=== PATIENT | female | born 1965 | race Caucasian/White ===

== ENCOUNTER → 2016-09-24 | Outpatient (CLI) | payer OTHER ==
[~2016-09-24] MED LIST: ABILIFY20 MG PO; ALPRAZOLAM; AMOXICILLIN500 MG PO; AUGMENTIN 875 M1 TAB PO; AUGMENTIN 875875 MG PO; BACTRIM DS 8001 TA1 PO; BENADRYL ALLERG25 M5 PO; BENZTROPINE MESY2 MG PO; BUSPAR5 MG PO; CALCIUM 500 + D1 TA1 PO; CHERATUSSIN AC120 ML PO; CIPRO500 MG PO; CIPRODEX 0.3%-7.5 ML OT; CIPROFLOXACIN500 MG PO; COGENTIN2 MG PO; DAYPRO600 M1 PO; FLAGYL500 MG PO; FLEXERIL10 MG PO; FLOXIN 5 ML5 M1 OT; GENTAMICIN3 MG/ML OT; HYDROCODONE BIT1 T11 PO; IBUPROFEN PO; LEVOFLOXACIN500 MG PO; MACROBID100 M1 PO; MOBIC15 MG PO; MOTRIN800 MG PO; NAPROSYN500 MG PO; NO DAILY MEDS; OMNICEF300 MG PO; PEPCID20 MG PO; PERCOCET 325 MG1 TA2 PO; PRAZOSIN HCL2 MG PO; PREDNISONE10 MG PO; PRILOSEC40 MG PO; PROTONIX40 M1 IV; REMERON30 MG PO; RISPERDAL CONST50 MG IJ; RISPERDAL0.25 MG PO; RISPERDAL4 M1 PO; RISPERIDONE4 MG PO; ROBITUSSIN AC 110 ML PO; TRAZADONE HYDR100 MG PO; TRIMOX500 MG PO; VALIUM10 MG PO; VICODIN 5-3001 EACH PO; VISTARIL50 MG PO; XANAX2 M1 PO; ZOFRAN ODT4 MG SL; ZYRTEC10 M1 PO; ZYRTEC10 M3 PO
== END | disposition home or self-care (01) ==
LOC: MAMMO 09-10 12:00
DX: Z12.31 Encounter for screening mammogram for malignant neoplasm of breast (principal)

== ENCOUNTER 2017-04-17 18:11 | Emergency (ER) | payer OTHER ==
[~2017-04-17] VITALS: Ht 170.1 cm; Wt 74.8 kg
[2017-04-17 18:32] VITALS: BP 145/95
== END 2017-04-17 22:03 | disposition home or self-care (01) ==
LOC: ED 18:11
DX: S90.31XA Contusion of right foot, initial encounter (principal); Z90.49 Acquired absence of other specified parts of digestive tract; W22.03XA Walked into furniture, initial encounter; Y93.89 Activity, other specified; Y92.9 Unspecified place or not applicable; Y99.9 Unspecified external cause status

== ENCOUNTER 2017-07-28 14:21 | Emergency (ER) | payer OTHER ==
[~2017-07-28] VITALS: Wt 63.5 kg
[2017-07-28 14:26] VITALS: BP 162/84
== END 2017-07-28 15:02 | disposition home or self-care (01) ==
LOC: ED 14:21
DX: T14.91XA Suicide attempt, initial encounter (principal); F10.129 Alcohol abuse with intoxication, unspecified; F41.9 Anxiety disorder, unspecified; F20.0 Paranoid schizophrenia; Z91.5 Personal history of self-harm

== ENCOUNTER 2017-11-15 01:43 | Emergency (ER) | payer OTHER ==
[~2017-11-15] VITALS: Wt 59.0 kg
[2017-11-15 01:47] VITALS: BP 143/87
[2017-11-15 02:12] LABS: BILIRUBIN NEGATIVE (NEGATIVE); BLOOD NEGATIVE (NEGATIVE); CLARITY SL CLOUDY (CLEAR); COLOR YELLOW (YELLOW); GLUCOSE NEGATIVE (NEGATIVE); KETONE NEGATIVE (NEGATIVE); LEUKO ESTERASE NEGATIVE (NEGATIVE); NITRITE NEGATIVE (NEGATIVE); SPECIFIC GRAVITY <= 1.005 (1.005-1.030)
[2017-11-15 02:36] LABS: BASO % 0.3 % (0.0-1.0); EOS # 0.2 10*3/uL (0.0-0.4); EOS % 3.6 % (1.0-4.0); HEMATOCRIT 42.5 % (37.0-47.0); HEMOGLOBIN 14.5 g/dl (12.0-16.0); LYMPH # 1.8 10*3/uL (1.3-4.4); LYMPH % 28.1 % (27.0-41.0); MEAN CELL VOLUME 95.3 fl (81.0-99.0); MEAN CORPUSCULAR HGB 32.5 pg (27.0-31.0); MEAN CORPUSCULAR HGB CONC 34.1 g/dl (33.0-37.0); MEAN PLATELET VOLUME 10.9 fl (9.6-12.3); MONO # 0.5 10*3/uL (0.1-1.0); MONO % 8.4 % (3.0-9.0); NEUT # 3.8 10*3/uL (2.3-7.9); NEUT % 59.3 % (47.0-73.0); PLATELET COUNT AUTOMATED 121 10*3/uL (130-400); RED BLOOD COUNT 4.46 10*6/uL (4.10-5.10); RED CELL DISTRI WIDTH 11.5 % (0-14.5); WHITE BLOOD COUNT 6.4 10*3/uL (4.8-10.8)
[2017-11-15 02:53] LABS: ALBUMIN 3.4 gm/dl (3.1-4.5); ALKALINE PHOSPHATASE 66 U/L (45-117); BUN 17 mg/dl (7-24); CHLORIDE 111 mmol/L (98-107); CREATININE 0.94 mg/dL (0.55-1.02); POTASSIUM 3.8 mmol/L (3.5-5.1); SGOT/AST 50 IU/L (3-35); SGPT/ALT 71 U/L (12-78); SODIUM 143 mmol/L (136-145); TOTAL PROTEIN 7.1 gm/dL (6.4-8.2)
[2017-11-15 02:56] LABS: ETHYL ALCOHOL < 3.0 mg/dl (<3)
[2017-11-15] MEDS ORDERED: ATARAX,VISTARIL50 MG PO (03:30)
[2017-11-15] MEDS ORDERED: ZITHROMAX250 MG PO (03:30)
== END 2017-11-15 03:24 | disposition home or self-care (01) ==
LOC: ED 01:43
PROVIDERS: Emergency Medicine Emergency Medical Services; Nurse Practitioner Family
DX: J20.9 Acute bronchitis, unspecified (principal); Z98.890 Other specified postprocedural states; Z90.49 Acquired absence of other specified parts of digestive tract

== ENCOUNTER 2018-10-06 19:44 | Emergency (ER) | payer OTHER ==
[~2018-10-06] VITALS: Ht 170.1 cm; Wt 65.8 kg
[~2018-10-06 19:44] MED LIST changes: +ATARAX,VISTARIL50 MG PO; +ZITHROMAX250 MG PO
[2018-10-06 19:45] VITALS: BP 156/89
[2018-10-06] MEDS ORDERED: AMINOPHYLLIN200 MG PO (20:02)
== END 2018-10-06 20:10 | disposition home or self-care (01) ==
LOC: ED 19:44
DX: H66.92 Otitis media, unspecified, left ear (principal); L29.9 Pruritus, unspecified

== ENCOUNTER 2018-10-14 17:40 | Emergency (ER) | payer OTHER ==
[~2018-10-14] VITALS: Ht 170.1 cm; Wt 65.8 kg
[~2018-10-14 17:40] MED LIST changes: +AMINOPHYLLIN200 MG PO
[2018-10-14 17:43] VITALS: BP 153/95
[2018-10-14] MEDS ORDERED: ALA-CORT28.4 GM T (18:06)
== END 2018-10-14 18:13 | disposition home or self-care (01) ==
LOC: ED 17:40
DX: R21 Rash and other nonspecific skin eruption (principal); T45.0X5A Adverse effect of antiallergic and antiemetic drugs, initial encounter; H92.02 Otalgia, left ear; Z90.49 Acquired absence of other specified parts of digestive tract; Z98.890 Other specified postprocedural states; Z79.899 Other long term (current) drug therapy; Y92.89 Other specified places as the place of occurrence of the external cause

== ENCOUNTER 2019-04-22 17:58 | Emergency (ER) | payer OTHER ==
[~2019-04-22] VITALS: Ht 170.1 cm; Wt 68.0 kg
[~2019-04-22 17:58] MED LIST changes: +ALA-CORT28.4 GM T
[2019-04-22 18:01] VITALS: BP 145/95
[2019-04-22] MEDS ORDERED: ZITHROMAX250 MG PO (19:44)
[2019-04-22] MEDS ORDERED: REGLAN10 M1 PO (19:44)
== END 2019-04-22 19:55 | disposition home or self-care (01) ==
LOC: ED 17:58
DX: J06.9 Acute upper respiratory infection, unspecified (principal); R11.2 Nausea with vomiting, unspecified; H92.01 Otalgia, right ear

== ENCOUNTER 2019-08-03 17:25 | Emergency (ER) | payer OTHER ==
[~2019-08-03] VITALS: Ht 170.1 cm; Wt 65.8 kg
[~2019-08-03 17:25] MED LIST changes: +REGLAN10 M1 PO
[2019-08-03 17:26] VITALS: BP 138/108
[2019-08-03] MEDS ORDERED: OFLOXACIN OTIC5 ML OT (17:57)
[2019-08-03] MEDS ORDERED: NAPROSYN500 MG PO (17:57)
== END 2019-08-03 18:06 | disposition home or self-care (01) ==
LOC: ED 17:25
DX: H60.92 Unspecified otitis externa, left ear (principal)

== ENCOUNTER 2019-11-17 13:39 | Emergency (ER) | payer OTHER ==
[~2019-11-17] VITALS: Ht 167.6 cm; Wt 67.6 kg
[~2019-11-17 13:39] MED LIST changes: +OFLOXACIN OTIC5 ML OT
[2019-11-17 15:07] LABS: BASO % 0.3 % (0.0-1.0); EOS # 0.7 10*3/uL (0.0-0.4); EOS % 6.3 % (1.0-4.0); HEMATOCRIT 43.9 % (37.0-47.0); HEMOGLOBIN 14.5 g/dl (12.0-16.0); LYMPH # 2.6 10*3/uL (1.3-4.4); LYMPH % 24.1 % (27.0-41.0); MEAN CELL VOLUME 96.9 fl (81.0-99.0); MEAN PLATELET VOLUME 10.7 fl (9.6-12.3); MONO # 1.2 10*3/uL (0.1-1.0); MONO % 10.6 % (3.0-9.0); NEUT # 6.3 10*3/uL (2.3-7.9); PLATELET COUNT AUTOMATED 203 10*3/uL (130-400); RED BLOOD COUNT 4.53 10*6/uL (4.10-5.10); RED CELL DISTRI WIDTH 11.9 % (0-14.5); WHITE BLOOD COUNT 10.8 10*3/uL (4.8-10.8)
[2019-11-17 15:24] LABS: ALBUMIN 3.1 gm/dl (3.1-4.5); ALKALINE PHOSPHATASE 82 U/L (45-117); BUN 17 mg/dl (7-24); CHLORIDE 107 mmol/L (98-107); CREATININE 0.91 mg/dL (0.55-1.02); LIPASE 285 U/L (73-393); POTASSIUM 3.8 mmol/L (3.5-5.1); SGOT/AST 45 IU/L (3-35); SGPT/ALT 53 U/L (12-78); SODIUM 139 mmol/L (136-145); TOTAL PROTEIN 7.4 gm/dL (6.4-8.2)
[2019-11-17 15:53] LABS: BACTERIA 4+; WBC TNTC wbc/hpf (0-5)
[2019-11-17 15:54] LABS: BILIRUBIN NEGATIVE (NEGATIVE); BLOOD NEGATIVE (NEGATIVE); CLARITY CLOUDY (CLEAR); COLOR YELLOW (YELLOW); GLUCOSE NEGATIVE (NEGATIVE); KETONE NEGATIVE (NEGATIVE); LEUKO ESTERASE 3+ (NEGATIVE); NITRITE POSITIVE (NEGATIVE); UROBILINOGEN 0.2 E.U./dl (0.2-1.0)
[2019-11-17 16:10] VITALS: BP 110/82
[2019-11-17] MEDS ORDERED: KEFLEX500 M1 PO (16:54)
[2019-11-17] MEDS ORDERED: REGLAN10 M1 PO (16:54)
== END 2019-11-17 17:13 | disposition home or self-care (01) ==
LOC: ED 13:39
PROVIDERS: Physician Assistant
DX: K57.32 Diverticulitis of large intestine without perforation or abscess without bleeding (principal); N20.0 Calculus of kidney; N39.0 Urinary tract infection, site not specified; R11.10 Vomiting, unspecified; Z86.19 Personal history of other infectious and parasitic diseases; Z90.49 Acquired absence of other specified parts of digestive tract

== ENCOUNTER → 2020-03-22 | Outpatient (CLI) | payer OTHER ==
[~2020-03-22] MED LIST changes: +KEFLEX500 M1 PO
[2020-03-22 08:37] LABS: HEMATOCRIT 43.1 % (37.0-47.0); MEAN CELL VOLUME 95.8 fl (81.0-99.0); MEAN CORPUSCULAR HGB 31.3 pg (27.0-31.0); MEAN CORPUSCULAR HGB CONC 32.7 g/dl (33.0-37.0); RED BLOOD COUNT 4.5 10*6/uL (4.10-5.10); RED CELL DISTRI WIDTH 12.1 % (0-14.5); WHITE BLOOD COUNT 6.1 10*3/uL (4.8-10.8)
[2020-03-22 08:52] LABS: BILIRUBIN NEGATIVE (NEGATIVE); CLARITY SL CLOUDY (CLEAR); COLOR YELLOW (YELLOW); GLUCOSE NEGATIVE (NEGATIVE); KETONE NEGATIVE (NEGATIVE)
[2020-03-22 08:53] LABS: BLOOD NEGATIVE (NEGATIVE); LEUKO ESTERASE 2+ (NEGATIVE); NITRITE NEGATIVE (NEGATIVE); PH 6.5 (5.0-9.0); SPECIFIC GRAVITY 1.015 (1.005-1.030); UROBILINOGEN 0.2 E.U./dl (0.2-1.0); WBC TNTC wbc/hpf (0-5)
[2020-03-22 09:07] LABS: ALBUMIN 3.3 gm/dl (3.1-4.5); ALKALINE PHOSPHATASE 84 U/L (45-117); BUN 15 mg/dl (7-24); CHLORIDE 109 mmol/L (98-107); CHOLESTEROL 138 mg/dL (<200); CREATININE 0.83 mg/dL (0.55-1.02); HDL CHOLESTEROL 49 mg/dl (40-60); LDL CHOLESTEROL 59 mg/dL (9-159); SGOT/AST 66 IU/L (3-35); SGPT/ALT 82 U/L (12-78); SODIUM 141 mmol/L (136-145); TOTAL PROTEIN 7.5 gm/dL (6.4-8.2); TRIGLYCERIDES 152 mg/dl (<150); VLDL CHOLESTEROL 30 mg/dL (6-40)
== END | disposition home or self-care (01) ==
LOC: LAB 08:08
PROVIDERS: Registered Nurse Flight
DX: K75.9 Inflammatory liver disease, unspecified (principal); R10.9 Unspecified abdominal pain

== ENCOUNTER → 2020-07-24 | Outpatient (CLI) | payer OTHER ==
[2020-07-24 15:32] LABS: BASO % 0.4 % (0.0-1.0); EOS # 0.4 10*3/uL (0.0-0.4); EOS % 7.2 % (1.0-4.0); LYMPH # 1.6 10*3/uL (1.3-4.4); LYMPH % 30.1 % (27.0-41.0); MEAN CORPUSCULAR HGB 31.4 pg (27.0-31.0); MEAN PLATELET VOLUME 10.8 fl (9.6-12.3); MONO # 0.5 10*3/uL (0.1-1.0); NEUT # 2.9 10*3/uL (2.3-7.9); NEUT % 52.9 % (47.0-73.0); PLATELET COUNT AUTOMATED 121 10*3/uL (130-400); RED BLOOD COUNT 4.49 10*6/uL (4.10-5.10); RED CELL DISTRI WIDTH 11.9 % (0-14.5); WHITE BLOOD COUNT 5.5 10*3/uL (4.8-10.8)
[2020-07-24 15:43] LABS: BUN 16 mg/dl (7-24); CHLORIDE 109 mmol/L (98-107); CREATININE 0.88 mg/dL (0.55-1.02); POTASSIUM 3.9 mmol/L (3.5-5.1); SODIUM 144 mmol/L (136-145)
[2020-07-24 15:48] LABS: IRON 108 ug/dL (50-170); TOTAL IRON BINDING CAPACITY 306 ug/dl (250-450)
[2020-07-24 16:20] LABS: FERRITIN 838.3 ng/mL (10.0-291.0); VITAMIN D, 25-HYDROXY 51.2 ng/mL (30-100)
[2020-07-25 08:09] LABS: HEP B CORE AB, IGM Negative (Negative); HEPATITIS B SURFACE AG Negative (Negative)
[2020-07-26 09:38] LABS: HEPATITIS C VIRUS ANTIBODY >11.0 s/co (0.0-0.9)
== END | disposition home or self-care (01) ==
LOC: RESCLI 02:25
PROVIDERS: Hospitalist; ATTEND Internal Medicine Nephrology
DX: R53.82 Chronic fatigue, unspecified (principal); F20.0 Paranoid schizophrenia; R13.19 Other dysphagia; F31.9 Bipolar disorder, unspecified; K21.9 Gastro-esophageal reflux disease without esophagitis; G43.909 Migraine, unspecified, not intractable, without status migrainosus; F41.9 Anxiety disorder, unspecified; G25.81 Restless legs syndrome; F51.04 Psychophysiologic insomnia; E55.9 Vitamin D deficiency, unspecified; L29.9 Pruritus, unspecified; Z12.11 Encounter for screening for malignant neoplasm of colon; Z90.49 Acquired absence of other specified parts of digestive tract; Z98.890 Other specified postprocedural states; Z88.8 Allergy status to other drugs, medicaments and biological substances

== ENCOUNTER → 2020-07-27 | Outpatient (CLI) | payer OTHER ==
[2020-07-27 16:06] LABS: BILIRUBIN Negative (Negative); BLOOD Negative (Negative); CLARITY Cloudy (Clear); COLOR Yellow (Yellow); GLUCOSE Negative (Negative); KETONE Negative (Negative); LEUKO ESTERASE 2+ (Negative); NITRITE Positive (Negative)
[2020-07-27 16:21] LABS: BACTERIA 4+
[2020-07-28 08:08] LABS: HEPATITIS B SURFACE AB Reactive (.); RHEUMATOID ARTHRITIS FACTOR 29.8 IU/mL (0.0-13.9)
[2020-07-28 20:07] LABS: BARBITURATES SCREEN, URINE Negative ng/mL (Cutoff=300); BENZODIAZEPINES SCREEN URINE Negative ng/mL (Cutoff=300); CANNABINOID SCREEN, URINE Negative ng/mL (Cutoff=50); METHADONE SCREEN, URINE Negative ng/mL (Cutoff=300); OPIATE SCREEN, URINE Negative ng/mL (Cutoff=300)
[2020-07-29 22:08] LABS: HEPATITIS C QUANTITATION 2760000 IU/mL (.)
== END | disposition home or self-care (01) ==
LOC: RESCLI 08:54
PROVIDERS: Hospitalist; ATTEND Internal Medicine Nephrology
DX: G43.909 Migraine, unspecified, not intractable, without status migrainosus (principal); F20.0 Paranoid schizophrenia; F31.9 Bipolar disorder, unspecified; K21.9 Gastro-esophageal reflux disease without esophagitis; F41.9 Anxiety disorder, unspecified; G25.81 Restless legs syndrome; E55.9 Vitamin D deficiency, unspecified; R53.82 Chronic fatigue, unspecified; B18.2 Chronic viral hepatitis C; L27.0 Generalized skin eruption due to drugs and medicaments taken internally; Z12.31 Encounter for screening mammogram for malignant neoplasm of breast; Z79.899 Other long term (current) drug therapy; Z90.49 Acquired absence of other specified parts of digestive tract; Z98.890 Other specified postprocedural states; Z88.8 Allergy status to other drugs, medicaments and biological substances

== ENCOUNTER → 2020-10-05 | Outpatient (CLI) | payer OTHER | END | disposition home or self-care (01) | LOC: RESCLI 01:00 | PROVIDERS: ATTEND Internal Medicine Nephrology | DX: R53.82 Chronic fatigue, unspecified (principal); G43.909 Migraine, unspecified, not intractable, without status migrainosus; F20.0 Paranoid schizophrenia; F31.9 Bipolar disorder, unspecified; K21.9 Gastro-esophageal reflux disease without esophagitis; F41.9 Anxiety disorder, unspecified; G25.81 Restless legs syndrome; F51.04 Psychophysiologic insomnia; E55.9 Vitamin D deficiency, unspecified; B18.2 Chronic viral hepatitis C; Z79.899 Other long term (current) drug therapy; Z88.8 Allergy status to other drugs, medicaments and biological substances ==

== ENCOUNTER → 2021-07-31 | Outpatient (CLI) | payer OTHER | END | disposition home or self-care (01) | LOC: RESCLI 01:23 | PROVIDERS: ATTEND Internal Medicine | DX: R53.82 Chronic fatigue, unspecified (principal); G43.909 Migraine, unspecified, not intractable, without status migrainosus; F20.0 Paranoid schizophrenia; F31.9 Bipolar disorder, unspecified; K21.9 Gastro-esophageal reflux disease without esophagitis; F41.9 Anxiety disorder, unspecified; G25.81 Restless legs syndrome; F51.04 Psychophysiologic insomnia; E55.9 Vitamin D deficiency, unspecified; B18.2 Chronic viral hepatitis C; L29.9 Pruritus, unspecified; Z79.899 Other long term (current) drug therapy; Z90.49 Acquired absence of other specified parts of digestive tract; Z98.890 Other specified postprocedural states; Z88.8 Allergy status to other drugs, medicaments and biological substances ==

== ENCOUNTER → 2021-08-02 | Outpatient (CLI) | payer OTHER ==
[2021-08-02 11:22] LABS: ALBUMIN 3.3 gm/dl (3.1-4.5); ALKALINE PHOSPHATASE 101 U/L (45-117); BUN 16 mg/dl (7-24); CHLORIDE 108 mmol/L (98-107); CREATININE 0.77 mg/dL (0.55-1.02); POTASSIUM 4.3 mmol/L (3.5-5.1); SGOT/AST 106 IU/L (3-35); SGPT/ALT 124 U/L (12-78); SODIUM 140 mmol/L (136-145); TOTAL PROTEIN 7.9 gm/dL (6.4-8.2)
[2021-08-02 11:49] LABS: BASO % 0.6 % (0.0-1.0); EOS # 0.6 10*3/uL (0.0-0.4); EOS % 8.9 % (1.0-4.0); HEMATOCRIT 46.1 % (37.0-47.0); LYMPH # 1.5 10*3/uL (1.3-4.4); LYMPH % 23.5 % (27.0-41.0); MEAN CELL VOLUME 97.5 fl (81.0-99.0); MEAN CORPUSCULAR HGB 31.9 pg (27.0-31.0); MEAN CORPUSCULAR HGB CONC 32.8 g/dl (33.0-37.0); MEAN PLATELET VOLUME 11.5 fl (9.6-12.3); MONO # 0.7 10*3/uL (0.1-1.0); MONO % 10.8 % (3.0-9.0); NEUT # 3.6 10*3/uL (2.3-7.9); NEUT % 55.7 % (47.0-73.0); PLATELET COUNT AUTOMATED 112 10*3/uL (130-400); RED BLOOD COUNT 4.73 10*6/uL (4.10-5.10); WHITE BLOOD COUNT 6.5 10*3/uL (4.8-10.8)
== END | disposition home or self-care (01) ==
LOC: LAB 10:49
PROVIDERS: Hospitalist; ATTEND Internal Medicine
DX: B18.2 Chronic viral hepatitis C (principal); G25.81 Restless legs syndrome

== ENCOUNTER 2021-08-29 17:37 | Emergency (ER) | payer OTHER ==
[~2021-08-29] VITALS: Ht 170.1 cm; Wt 72.6 kg
[2021-08-29 18:18] VITALS: BP 132/83
== END 2021-08-29 21:09 | disposition home or self-care (01) ==
LOC: ED 17:37
DX: S82.832A Other fracture of upper and lower end of left fibula, initial encounter for closed fracture (principal); W10.8XXA Fall (on) (from) other stairs and steps, initial encounter; Y93.89 Activity, other specified; Y92.89 Other specified places as the place of occurrence of the external cause; Y99.8 Other external cause status

== ENCOUNTER → 2021-10-12 | Outpatient (CLI) | payer OTHER | END | disposition home or self-care (01) | LOC: ORTHO 01:29 | PROVIDERS: ATTEND Orthopaedic Surgery | DX: S82.65XD Nondisplaced fracture of lateral malleolus of left fibula, subsequent encounter for closed fracture with routine healing (principal); X58.XXXD Exposure to other specified factors, subsequent encounter ==

== ENCOUNTER → 2021-12-18 | Outpatient (CLI) | payer OTHER | END | disposition home or self-care (01) | LOC: RESCLI 01:25 | PROVIDERS: ATTEND Student in an Organized Health Care Education/Training Program | DX: R53.83 Other fatigue (principal); G43.909 Migraine, unspecified, not intractable, without status migrainosus; F20.0 Paranoid schizophrenia; K21.9 Gastro-esophageal reflux disease without esophagitis; G25.81 Restless legs syndrome; E55.9 Vitamin D deficiency, unspecified; Z12.31 Encounter for screening mammogram for malignant neoplasm of breast; Z13.820 Encounter for screening for osteoporosis; M80.072A Age-related osteoporosis with current pathological fracture, left ankle and foot, initial encounter for fracture; F31.9 Bipolar disorder, unspecified; F41.9 Anxiety disorder, unspecified; F51.04 Psychophysiologic insomnia; B18.2 Chronic viral hepatitis C; H66.012 Acute suppurative otitis media with spontaneous rupture of ear drum, left ear; K22.0 Achalasia of cardia; Z79.899 Other long term (current) drug therapy; Z88.8 Allergy status to other drugs, medicaments and biological substances ==

== ENCOUNTER 2022-06-15 23:25 | Emergency (ER) | payer OTHER ==
[~2022-06-15] VITALS: Ht 170.1 cm; Wt 70.3 kg
[2022-06-15] MEDS ORDERED: PANTOPRAZOLE SO40 MG PO (23:48)
[2022-06-15] MEDS ORDERED: TOPIRAMATE50 M2 PO (23:53)
[2022-06-16 00:09] LABS: BASO % 0.3 % (0.0-1.0); EOS # 0.6 10*3/uL (0.0-0.4); EOS % 5.1 % (1.0-4.0); HEMATOCRIT 42.2 % (37.0-47.0); LYMPH # 1.7 10*3/uL (1.3-4.4); LYMPH % 13.9 % (27.0-41.0); MEAN CORPUSCULAR HGB 31.8 pg (27.0-31.0); MEAN CORPUSCULAR HGB CONC 33.4 g/dl (33.0-37.0); MEAN PLATELET VOLUME 10.7 fl (9.6-12.3); MONO # 0.9 10*3/uL (0.1-1.0); MONO % 7.7 % (3.0-9.0); NEUT # 8.7 10*3/uL (2.3-7.9); NEUT % 72.7 % (47.0-73.0); PLATELET COUNT AUTOMATED 126 10*3/uL (130-400); RED BLOOD COUNT 4.44 10*6/uL (4.10-5.10); RED CELL DISTRI WIDTH 11.9 % (0-14.5)
[2022-06-16 00:18] VITALS: BP 169/94
[2022-06-16 00:20] LABS: ACT PARTIAL THROMBO TIME 32.2 SECONDS (20.0-32.1)
[2022-06-16 00:25] LABS: BUN 20 mg/dl (7-24); CHLORIDE 113 mmol/L (98-107); CREATININE 0.83 mg/dL (0.55-1.02); LIPASE 269 U/L (73-393); POTASSIUM 3.9 mmol/L (3.5-5.1); SGOT/AST 17 IU/L (3-35); SGPT/ALT 23 U/L (12-78); SODIUM 142 mmol/L (136-145); TOTAL PROTEIN 7.1 gm/dL (6.4-8.2)
[2022-06-16 00:26] LABS: ALKALINE PHOSPHATASE 95 U/L (45-117)
[2022-06-16] MEDS ORDERED: AMOX-CLAV 875-1 EACH PO (02:40)
== END 2022-06-16 03:20 | disposition home or self-care (01) ==
LOC: ED 23:25
PROVIDERS: Family Medicine
DX: K57.92 Diverticulitis of intestine, part unspecified, without perforation or abscess without bleeding (principal); Z79.899 Other long term (current) drug therapy; Z90.49 Acquired absence of other specified parts of digestive tract; Z98.890 Other specified postprocedural states

== ENCOUNTER → 2022-08-21 | Outpatient (CLI) | payer OTHER ==
[~2022-08-21] MED LIST changes: +AMOX-CLAV 875-1 EACH PO; +PANTOPRAZOLE SO40 MG PO; +TOPIRAMATE50 M2 PO
== END | disposition home or self-care (01) ==
LOC: RESCLI 01:23
PROVIDERS: ATTEND Student in an Organized Health Care Education/Training Program
DX: F20.0 Paranoid schizophrenia (principal); N39.3 Stress incontinence (female) (male); R53.82 Chronic fatigue, unspecified; G43.009 Migraine without aura, not intractable, without status migrainosus; K21.9 Gastro-esophageal reflux disease without esophagitis; G25.81 Restless legs syndrome; G43.909 Migraine, unspecified, not intractable, without status migrainosus; Z00.00 Encounter for general adult medical examination without abnormal findings; Z79.899 Other long term (current) drug therapy; Z90.49 Acquired absence of other specified parts of digestive tract; Z98.890 Other specified postprocedural states

== ENCOUNTER → 2022-10-07 | Outpatient (CLI) | payer OTHER ==
[2022-10-07 15:05] LABS: BASO % 0.3 % (0.0-1.0); EOS # 0.3 10*3/uL (0.0-0.4); HEMATOCRIT 46.4 % (37.0-47.0); LYMPH # 1.9 10*3/uL (1.3-4.4); LYMPH % 20.9 % (27.0-41.0); MEAN CELL VOLUME 96.1 fl (81.0-99.0); MEAN CORPUSCULAR HGB 31.1 pg (27.0-31.0); MEAN CORPUSCULAR HGB CONC 32.3 g/dl (33.0-37.0); MONO # 0.7 10*3/uL (0.1-1.0); MONO % 7.2 % (3.0-9.0); NEUT # 6.3 10*3/uL (2.3-7.9); NEUT % 68.3 % (47.0-73.0); PLATELET COUNT AUTOMATED 177 10*3/uL (130-400); RED BLOOD COUNT 4.83 10*6/uL (4.10-5.10); RED CELL DISTRI WIDTH 12.1 % (0-14.5); WHITE BLOOD COUNT 9.2 10*3/uL (4.8-10.8)
[2022-10-07 15:24] LABS: ALKALINE PHOSPHATASE 107 U/L (46-116); BUN 16 mg/dl (9-23); CHLORIDE 107 mmol/L (98-107); CHOLESTEROL 168 mg/dL (<200); LDL CHOLESTEROL 105 mg/dL (9-159); POTASSIUM 3.9 mmol/L (3.4-5.1); SGPT/ALT 19 U/L (10-49); TOTAL PROTEIN 7.8 gm/dL (6.0-8.0); TRIGLYCERIDES 108 mg/dl (<150)
== END | disposition home or self-care (01) ==
LOC: RESCLI 12:52
PROVIDERS: Student in an Organized Health Care Education/Training Program; ATTEND Family Medicine
DX: N39.3 Stress incontinence (female) (male) (principal); Z00.00 Encounter for general adult medical examination without abnormal findings; F31.9 Bipolar disorder, unspecified; F20.0 Paranoid schizophrenia; G62.9 Polyneuropathy, unspecified; E55.9 Vitamin D deficiency, unspecified; Z90.49 Acquired absence of other specified parts of digestive tract; Z98.890 Other specified postprocedural states; Z82.49 Family history of ischemic heart disease and other diseases of the circulatory system; Z72.89 Other problems related to lifestyle; Z79.899 Other long term (current) drug therapy

== ENCOUNTER → 2024-05-18 | Outpatient (CLI) | payer OTHER ==
[~2024-05-18] MED LIST changes: +AMOXICILLIN875 MG PO; +HYDROCODONE-AC1 EAC1 PO; +PREDNISONE20 M1 PO
== END | disposition home or self-care (01) ==
LOC: RESCLI 02:38
PROVIDERS: ATTEND Family Medicine
DX: L23.7 Allergic contact dermatitis due to plants, except food (principal); M79.2 Neuralgia and neuritis, unspecified; I10 Essential (primary) hypertension; G43.909 Migraine, unspecified, not intractable, without status migrainosus; E55.9 Vitamin D deficiency, unspecified; G25.81 Restless legs syndrome; K21.9 Gastro-esophageal reflux disease without esophagitis; Z98.890 Other specified postprocedural states; Z90.49 Acquired absence of other specified parts of digestive tract; F10.90 Alcohol use, unspecified, uncomplicated; Z88.8 Allergy status to other drugs, medicaments and biological substances; Z79.899 Other long term (current) drug therapy

== ENCOUNTER 2024-05-19 23:16 | Emergency (ER) | payer OTHER ==
[~2024-05-19] VITALS: Ht 167.6 cm; Wt 73.9 kg
[~2024-05-19 23:16] MED LIST changes: -PREDNISONE20 M1 PO
[2024-05-19 23:45] VITALS: BP 158/76
[2024-05-19] MEDS ORDERED: methylPREDNISolone sod succ 125 MG VIAL IV ONE (23:45)
[2024-05-19] MEDS ORDERED: FAMOTIDINE 50 ML IV ONE (23:45)
[2024-05-19] MEDS ORDERED: diphenhydrAMINE hydrochloride 50 MG/ML VIAL IV ONE (23:45)
[2024-05-20] MEDS ORDERED: PREDNISONE20 M1 PO (01:04)
== END 2024-05-20 01:22 | disposition home or self-care (01) ==
LOC: ED 23:16
DX: L23.7 Allergic contact dermatitis due to plants, except food (principal); Z79.2 Long term (current) use of antibiotics; Z79.899 Other long term (current) drug therapy; Z90.49 Acquired absence of other specified parts of digestive tract; Z98.890 Other specified postprocedural states

== ENCOUNTER → 2024-06-10 | Outpatient (CLI) | payer OTHER ==
[~2024-06-10] MED LIST changes: +PREDNISONE20 M1 PO
[2024-06-10 12:10] LABS: BASO % 0.3 % (0.0-1.0); EOS # 0.5 10*3/uL (0.0-0.4); EOS % 5.5 % (1.0-4.0); HEMATOCRIT 46.2 % (37.0-47.0); LYMPH # 2.7 10*3/uL (1.3-4.4); LYMPH % 29.6 % (27.0-41.0); MEAN CELL VOLUME 95.1 fl (81.0-99.0); MEAN CORPUSCULAR HGB 31.3 pg (27.0-31.0); MEAN CORPUSCULAR HGB CONC 32.9 g/dl (33.0-37.0); MONO # 0.7 10*3/uL (0.1-1.0); MONO % 7.2 % (3.0-9.0); NEUT # 5.2 10*3/uL (2.3-7.9); NEUT % 56.9 % (47.0-73.0); PLATELET COUNT AUTOMATED 155 10*3/uL (130-400); RED BLOOD COUNT 4.86 10*6/uL (4.10-5.10); RED CELL DISTRI WIDTH 12.6 % (0-14.5); WHITE BLOOD COUNT 9.2 10*3/uL (4.8-10.8)
[2024-06-10 12:35] LABS: ALKALINE PHOSPHATASE 86 U/L (46-116); BUN 18 mg/dl (9-23); CHLORIDE 106 mmol/L (98-107); CHOLESTEROL 192 mg/dL (<200); LDL CHOLESTEROL 115 mg/dL (9-159); POTASSIUM 3.9 mmol/L (3.4-5.1); SGPT/ALT 14 U/L (5-49); TOTAL PROTEIN 7.3 gm/dL (6.0-8.0); TRIGLYCERIDES 161 mg/dl (<150)
[2024-06-10 12:56] LABS: VITAMIN D, 25-HYDROXY 32.3 ng/mL (30-100)
== END | disposition home or self-care (01) ==
LOC: LAB 11:05
PROVIDERS: Student in an Organized Health Care Education/Training Program; ATTEND Internal Medicine
DX: Z00.00 Encounter for general adult medical examination without abnormal findings (principal)

== ENCOUNTER → 2024-06-15 | Outpatient (CLI) | payer OTHER | END | disposition home or self-care (01) | LOC: RESCLI 01:37 | PROVIDERS: ATTEND Family Medicine | DX: I10 Essential (primary) hypertension (principal); G25.81 Restless legs syndrome; K21.9 Gastro-esophageal reflux disease without esophagitis; E55.9 Vitamin D deficiency, unspecified; F10.90 Alcohol use, unspecified, uncomplicated; R53.82 Chronic fatigue, unspecified; Z98.890 Other specified postprocedural states; Z88.8 Allergy status to other drugs, medicaments and biological substances; Z79.899 Other long term (current) drug therapy; Z90.49 Acquired absence of other specified parts of digestive tract; Y90.9 Presence of alcohol in blood, level not specified ==

== ENCOUNTER 2024-08-05 16:39 | Emergency (ER) | payer OTHER ==
[~2024-08-05] VITALS: Ht 170.1 cm; Wt 74.8 kg
[2024-08-05 17:03] VITALS: BP 152/105
[2024-08-05] MEDS ORDERED: Ondansetron Hydrochloride 4 MG/2 ML VIAL IV ONE (17:10)
[2024-08-05] MEDS ORDERED: SODIUM CHLORIDE 0.9% 1,000 ML IV ONE (17:10)
[2024-08-05] MEDS ORDERED: Ketorolac Tromethamine 15 MG/ML VIAL IV ONE (17:10)
[2024-08-05] MEDS ORDERED: MORPHINE Sulfate 2 MG/ML SYR IV ONE (17:10)
[2024-08-05 17:28] LABS: BASO % 0.2 % (0.0-1.0); EOS # 0.5 10*3/uL (0.0-0.4); EOS % 4.9 % (1.0-4.0); HEMATOCRIT 45.4 % (37.0-47.0); MEAN CELL VOLUME 94.4 fl (81.0-99.0); MEAN CORPUSCULAR HGB 30.4 pg (27.0-31.0); MEAN CORPUSCULAR HGB CONC 32.2 g/dl (33.0-37.0); MEAN PLATELET VOLUME 10.7 fl (9.6-12.3); MONO # 0.7 10*3/uL (0.1-1.0); MONO % 7.6 % (3.0-9.0); NEUT # 5.7 10*3/uL (2.3-7.9); NEUT % 61.5 % (47.0-73.0); PLATELET COUNT AUTOMATED 149 10*3/uL (130-400); RED BLOOD COUNT 4.81 10*6/uL (4.10-5.10); RED CELL DISTRI WIDTH 11.9 % (0-14.5); WHITE BLOOD COUNT 9.3 10*3/uL (4.8-10.8)
[2024-08-05 17:47] LABS: BUN 22 mg/dl (9-23); CHLORIDE 109 mmol/L (98-107); LIPASE 72 U/L (12-53); POTASSIUM 4.1 mmol/L (3.4-5.1)
[2024-08-05] MEDS ORDERED: MELOXICAM15 MG PO (18:34)
== END 2024-08-05 18:57 | disposition home or self-care (01) ==
LOC: ED 16:39
PROVIDERS: Emergency Medicine
DX: R10.32 Left lower quadrant pain (principal); R11.2 Nausea with vomiting, unspecified; R19.7 Diarrhea, unspecified; R42 Dizziness and giddiness; I10 Essential (primary) hypertension; F31.9 Bipolar disorder, unspecified; F41.9 Anxiety disorder, unspecified; Z90.49 Acquired absence of other specified parts of digestive tract; Z98.890 Other specified postprocedural states

== ENCOUNTER → 2024-10-19 | Outpatient (CLI) | payer OTHER ==
[~2024-10-19] MED LIST changes: +MELOXICAM15 MG PO
== END | disposition home or self-care (01) ==
LOC: RESCLI 02:03
PROVIDERS: ATTEND Student in an Organized Health Care Education/Training Program
DX: I10 Essential (primary) hypertension (principal); G43.909 Migraine, unspecified, not intractable, without status migrainosus; K21.9 Gastro-esophageal reflux disease without esophagitis; G25.81 Restless legs syndrome; E55.9 Vitamin D deficiency, unspecified; Z79.899 Other long term (current) drug therapy; Z98.890 Other specified postprocedural states; Z88.8 Allergy status to other drugs, medicaments and biological substances

== ENCOUNTER 2025-02-20 19:41 | Inpatient (IN) | payer OTHER ==
[~2025-02-20] VITALS: Ht 170.2 cm; Wt 76.2 kg
[2025-02-20 19:54] VITALS: BP 150/94
[2025-02-20 20:31] LABS: BASO % 0.3 % (0.0-1.0); EOS # 0.3 10*3/uL (0.0-0.4); EOS % 3.6 % (1.0-4.0); HEMATOCRIT 43.5 % (37.0-47.0); MEAN CELL VOLUME 93.1 fl (81.0-99.0); MEAN CORPUSCULAR HGB 30.8 pg (27.0-31.0); MEAN CORPUSCULAR HGB CONC 33.1 g/dl (33.0-37.0); MEAN PLATELET VOLUME 10.9 fl (9.6-12.3); MONO # 0.5 10*3/uL (0.1-1.0); MONO % 6.7 % (3.0-9.0); NEUT # 5.1 10*3/uL (2.3-7.9); NEUT % 65.7 % (47.0-73.0); PLATELET COUNT AUTOMATED 159 10*3/uL (130-400); RED BLOOD COUNT 4.67 10*6/uL (4.10-5.10); RED CELL DISTRI WIDTH 12.6 % (0-14.5); WHITE BLOOD COUNT 7.8 10*3/uL (4.8-10.8)
[2025-02-20 20:48] LABS: BILIRUBIN Negative (Negative); BLOOD Negative (Negative); CLARITY Clear (Clear); COLOR Yellow (Yellow); GLUCOSE Negative (Negative); KETONE Negative (Negative); LEUKO ESTERASE Negative (Negative); NITRITE Negative (Negative); UROBILINOGEN 0.2 E.U./dl (0.0-1.0)
[2025-02-20 20:55] LABS: URINE AMPHETAMINES Negative (1000ng/ml); URINE BARBITURATES Negative (200ng/ml); URINE BENZODIAZEPINES Negative (200ng/ml); URINE CANNABINOIDS (THC) Negative (50ng/ml); URINE COCAINE Negative (300ng/ml); URINE METHADONE Negative (300ng/ml); URINE OPIATES Negative (300ng/ml); URINE PHENCYCLIDINE Negative (25ng/ml)
[2025-02-20 20:57] LABS: POTASSIUM 4.1 mmol/L (3.4-5.1); TOTAL PROTEIN 7.1 gm/dL (6.0-8.0)
[2025-02-20 21:00] LABS: EPITHELIAL CELLS 0-2; WBC 0-2 wbc/hpf (0-5)
[2025-02-20 21:47] LABS: ACT PARTIAL THROMBO TIME 29.2 SECONDS (20.0-32.1)
[2025-02-20] MEDS ORDERED: fentaNYL CITRATE 100 MCG/2 ML VIAL IV ONE (21:50)
[2025-02-20] MEDS ORDERED: Dicyclomine Hydrochloride 20 MG/10 ML OSYR PO STA (23:02)
[2025-02-20] MEDS ORDERED: Lidocaine Hydrochloride 15 ML UDC PO STA (23:02)
[2025-02-20] MEDS ORDERED: MG-AL HYDROXIDE/SIMETICONE 30 ML UDC PO STA (23:02)
[2025-02-20] MEDS ORDERED: MORPHINE Sulfate 2 MG/ML SYR IV PRN (23:05)
[2025-02-20] MEDS ORDERED: Ondansetron Hydrochloride 4 MG/2 ML VIAL IV PRN (23:05)
[2025-02-20] MEDS ORDERED: SODIUM CHLORIDE 0.9% 1,000 ML IV ONE (23:10)
[2025-02-20] MEDS ORDERED: HYDROmorphONE Hydrochloride 0.5 MG/0.5 ML SYRINGE IV PRN (23:10)
[2025-02-20] MEDS ORDERED: Pantoprazole Sodium 40 MG VIAL IV ONE (23:15)
[2025-02-20 23:30] LABS: LIPASE 53 U/L (12-53)
[2025-02-21] VITALS: BP 159/79
[2025-02-21 00:30] VITALS: BP 159/79
[2025-02-21] MEDS ORDERED: SUMATRIPTAN SUC50 M1 PO (00:58)
[2025-02-21] MEDS ORDERED: GABAPENTIN400 MG PO (00:58)
[2025-02-21] MEDS ORDERED: ONDANSETRON HYDR4 MG PO (00:59)
[2025-02-21] MEDS ORDERED: LISINOPRIL30 MG PO (00:59)
[2025-02-21 06:43] LABS: BASO % 0.3 % (0.0-1.0); EOS # 0.3 10*3/uL (0.0-0.4); EOS % 3.6 % (1.0-4.0); HEMATOCRIT 40.3 % (37.0-47.0); MEAN CELL VOLUME 95.5 fl (81.0-99.0); MEAN CORPUSCULAR HGB 30.8 pg (27.0-31.0); MEAN CORPUSCULAR HGB CONC 32.3 g/dl (33.0-37.0); MEAN PLATELET VOLUME 11.4 fl (9.6-12.3); MONO # 0.6 10*3/uL (0.1-1.0); MONO % 8.3 % (3.0-9.0); NEUT # 4.1 10*3/uL (2.3-7.9); NEUT % 56.9 % (47.0-73.0); PLATELET COUNT AUTOMATED 136 10*3/uL (130-400); RED BLOOD COUNT 4.22 10*6/uL (4.10-5.10); RED CELL DISTRI WIDTH 12.7 % (0-14.5); WHITE BLOOD COUNT 7.2 10*3/uL (4.8-10.8)
[2025-02-21 06:54] LABS: ALKALINE PHOSPHATASE 83 U/L (46-116); BUN 17 mg/dl (9-23); CHLORIDE 112 mmol/L (98-107); CHOLESTEROL 145 mg/dL (<200); FREE T4 0.97 ng/dl (0.89-1.76); LDL CHOLESTEROL 94 mg/dL (9-159); SGPT/ALT 15 U/L (5-49); TOTAL PROTEIN 6.4 gm/dL (6.0-8.0); TRIGLYCERIDES 108 mg/dl (<150)
[2025-02-21 07:22] LABS: VITAMIN D, 25-HYDROXY 41.6 ng/mL (30-100)
[2025-02-21 08:00] VITALS: BP 144/97
[2025-02-21] MEDS ORDERED: SODIUM CHLORIDE 0.9% 1,000 ML IV ONE (08:35)
[2025-02-21] MEDS ORDERED: HEPARIN SODIUM 5,000 UNIT/ML VIAL SC SCH (10:00)
[2025-02-21] MEDS ORDERED: Technetium Tc 99M Tetrofosmi 0.23 MG KIT IJ SCH (10:20)
[2025-02-21] MEDS ORDERED: ASPIRIN ENTERIC COATED 81 MG TAB PO SCH (10:50)
[2025-02-21 11:56] VITALS: BP 130/75
[2025-02-21 16:00] VITALS: BP 112/88
[2025-02-21] MEDS ORDERED: Pantoprazole Sodium 40 MG TAB PO SCH (18:00)
[2025-02-21 20:00] VITALS: BP 144/74
[2025-02-22] VITALS: BP 158/83
[2025-02-22] MEDS ORDERED: Regadenoson 0.4 MG/5 ML SYR IV ONE (05:18)
[2025-02-22 06:51] LABS: BASO % 0.2 % (0.0-1.0); EOS # 0.2 10*3/uL (0.0-0.4); EOS % 3.1 % (1.0-4.0); HEMATOCRIT 40.5 % (37.0-47.0); MEAN CELL VOLUME 95.1 fl (81.0-99.0); MEAN CORPUSCULAR HGB 30.3 pg (27.0-31.0); MEAN CORPUSCULAR HGB CONC 31.9 g/dl (33.0-37.0); MEAN PLATELET VOLUME 11.5 fl (9.6-12.3); MONO # 0.4 10*3/uL (0.1-1.0); NEUT # 2.9 10*3/uL (2.3-7.9); NEUT % 55.7 % (47.0-73.0); PLATELET COUNT AUTOMATED 115 10*3/uL (130-400); RED BLOOD COUNT 4.26 10*6/uL (4.10-5.10); RED CELL DISTRI WIDTH 12.3 % (0-14.5); WHITE BLOOD COUNT 5.2 10*3/uL (4.8-10.8)
[2025-02-22 07:12] LABS: BUN 15 mg/dl (9-23); CHLORIDE 108 mmol/L (98-107); POTASSIUM 4.1 mmol/L (3.4-5.1)
[2025-02-22] MEDS ORDERED: Technetium Tc 99M Tetrofosmi 0.23 MG KIT IJ SCH (07:15)
[2025-02-22] MEDS ORDERED: Lidocaine Hydrochloride 15 ML UDC PO STA (09:36)
[2025-02-22] MEDS ORDERED: Dicyclomine Hydrochloride 20 MG/10 ML OSYR PO STA (09:36)
[2025-02-22] MEDS ORDERED: MG-AL HYDROXIDE/SIMETICONE 30 ML UDC PO STA (09:36)
[2025-02-22] MEDS ORDERED: LISINOPRIL 10 MG TAB PO SCH (10:00)
[2025-02-22] MEDS ORDERED: PANTOPRAZOLE SO40 MG PO (11:17)
[2025-02-22] MEDS ORDERED: ASPIRIN ADULT L81 M2 PO (11:17)
[2025-02-22 11:47] VITALS: BP 131/69
== END 2025-02-22 12:25 | disposition home or self-care (01) | DRG 241 ==
LOC: ED 19:41 → 5E 22:43 → EDHOLD 22:43 → 5E 23:04
PROVIDERS: Nurse Practitioner Family; Student in an Organized Health Care Education/Training Program; ADMIT Student in an Organized Health Care Education/Training Program; ATTEND Student in an Organized Health Care Education/Training Program
PROC: 4A02XM4 Measurement of Cardiac Total Activity, External Approach (ICD-10-PCS; principal; 2025-02-22)
PROC: 3E033HZ Introduction of Radioactive Substance into Peripheral Vein, Percutaneous Approach (ICD-10-PCS; 2025-02-22)
DX: K29.70 Gastritis, unspecified, without bleeding (principal); N17.0 Acute kidney failure with tubular necrosis; F20.0 Paranoid schizophrenia; F41.9 Anxiety disorder, unspecified; E78.5 Hyperlipidemia, unspecified; I10 Essential (primary) hypertension; F31.9 Bipolar disorder, unspecified; G43.909 Migraine, unspecified, not intractable, without status migrainosus; N20.0 Calculus of kidney; E87.8 Other disorders of electrolyte and fluid balance, not elsewhere classified; I25.10 Atherosclerotic heart disease of native coronary artery without angina pectoris; E16.2 Hypoglycemia, unspecified; K57.30 Diverticulosis of large intestine without perforation or abscess without bleeding; Z90.49 Acquired absence of other specified parts of digestive tract; Z85.118 Personal history of other malignant neoplasm of bronchus and lung

== ENCOUNTER → 2025-03-08 | Outpatient (CLI) | payer OTHER ==
[~2025-03-08] MED LIST changes: +ASPIRIN ADULT L81 M2 PO; +GABAPENTIN400 MG PO; +LISINOPRIL30 MG PO; +ONDANSETRON HYDR4 MG PO; +SUMATRIPTAN SUC50 M1 PO
== END | disposition home or self-care (01) ==
LOC: RESCLI 01:06
PROVIDERS: ATTEND Family Medicine
DX: G25.81 Restless legs syndrome (principal); G43.909 Migraine, unspecified, not intractable, without status migrainosus; I10 Essential (primary) hypertension; K21.9 Gastro-esophageal reflux disease without esophagitis; E55.9 Vitamin D deficiency, unspecified

== ENCOUNTER 2025-05-07 11:04 | Emergency (ER) | payer OTHER ==
[~2025-05-07] VITALS: Ht 170 cm; Wt 72.6 kg
[2025-05-07] MEDS ORDERED: Ondansetron Hydrochloride 4 MG/2 ML VIAL IV ONE (11:30)
[2025-05-07] MEDS ORDERED: diazePAM 5 MG TAB PO ONE (11:30)
[2025-05-07 11:48] LABS: BASO # 0.0 10*3/uL (0.0-0.1); BASO % 0.3 % (0.0-1.0); EOS # 0.3 10*3/uL (0.0-0.4); EOS % 3.8 % (1.0-4.0); MEAN CELL VOLUME 95.6 fl (81.0-99.0); MEAN CORPUSCULAR HGB 30.4 pg (27.0-31.0); MEAN PLATELET VOLUME 10.7 fl (9.6-12.3); MONO # 0.5 10*3/uL (0.1-1.0); MONO % 6.9 % (3.0-9.0); NEUT # 5.0 10*3/uL (2.3-7.9); NEUT % 66.7 % (47.0-73.0); NUCLEATED RED BLOOD CELL 0.0 % (0.0-0.0); NUCLEATED RED BLOOD CELL 0.0 10*3/uL (0.0-0.0); PLATELET COUNT AUTOMATED 156 10*3/uL (130-400); RED CELL DISTRI WIDTH 12.5 % (0-14.5)
[2025-05-07 11:54] LABS: BILIRUBIN Negative (Negative); BLOOD Trace-Lysed (Negative); CLARITY Clear (Clear); COLOR Yellow (Yellow); KETONE Negative (Negative); LEUKO ESTERASE 2+ (Negative); NITRITE Positive (Negative); PH 6.0 (4.5-8.0); SPECIFIC GRAVITY 1.020 (1.001-1.030); UROBILINOGEN 1.0 E.U./dl (0.0-1.0)
[2025-05-07 12:02] LABS: URINE AMPHETAMINES Negative (1000ng/ml); URINE BARBITURATES Negative (200ng/ml); URINE BENZODIAZEPINES Negative (200ng/ml); URINE CANNABINOIDS (THC) Negative (50ng/ml); URINE COCAINE Negative (300ng/ml); URINE METHADONE Negative (300ng/ml); URINE OPIATES Negative (300ng/ml); URINE PHENCYCLIDINE Negative (25ng/ml)
[2025-05-07 12:21] LABS: BACTERIA 4+; WBC 41-50 wbc/hpf (0-5)
[2025-05-07 12:32] LABS: BUN 20 mg/dl (9-23); CPK 80 U/L (34-171); ETHYL ALCOHOL 4.6 mg/dl (<3); SGPT/ALT 16 U/L (5-49)
[2025-05-07] MEDS ORDERED: ASPIRIN 325 MG ENTERIC COATED PO ONE (12:40)
[2025-05-07] MEDS ORDERED: NITROGLYCERIN 1 IN PACKET T ONE (12:40)
[2025-05-07] MEDS ORDERED: TICAGRELOR 90 MG TABLET PO ONE (13:20)
[2025-05-07 14:00] VITALS: BP 150/99
== END 2025-05-07 14:17 | disposition short-term general hospital (02) ==
LOC: ED 11:04
PROVIDERS: Emergency Medicine
DX: N39.0 Urinary tract infection, site not specified (principal); R07.89 Other chest pain; F19.10 Other psychoactive substance abuse, uncomplicated; I10 Essential (primary) hypertension; F20.0 Paranoid schizophrenia; F31.9 Bipolar disorder, unspecified; F41.9 Anxiety disorder, unspecified; Z90.49 Acquired absence of other specified parts of digestive tract; Z98.890 Other specified postprocedural states; Z86.19 Personal history of other infectious and parasitic diseases

== ENCOUNTER 2025-05-11 13:35 | Observation (INO) | payer OTHER ==
[~2025-05-11] VITALS: Ht 167.6 cm; Wt 74.8 kg
[2025-05-11 13:45] VITALS: BP 125/71
[2025-05-11] MEDS ORDERED: SODIUM CHLORIDE 0.9% 1,000 ML IV ONE (13:50)
[2025-05-11] MEDS ORDERED: Ondansetron Hydrochloride 4 MG/2 ML VIAL IV ONE (13:50)
[2025-05-11 14:10] LABS: BASO # 0.0 10*3/uL (0.0-0.1); BASO % 0.2 % (0.0-1.0); EOS # 0.2 10*3/uL (0.0-0.4); EOS % 2.2 % (1.0-4.0); MEAN CELL VOLUME 97.3 fl (81.0-99.0); MEAN CORPUSCULAR HGB 31.2 pg (27.0-31.0); MEAN PLATELET VOLUME 11.3 fl (9.6-12.3); MONO # 0.7 10*3/uL (0.1-1.0); MONO % 6.8 % (3.0-9.0); NEUT # 7.0 10*3/uL (2.3-7.9); NEUT % 66.1 % (47.0-73.0); NUCLEATED RED BLOOD CELL 0.0 % (0.0-0.0); NUCLEATED RED BLOOD CELL 0.0 10*3/uL (0.0-0.0); PLATELET COUNT AUTOMATED 163 10*3/uL (130-400); RED CELL DISTRI WIDTH 13.2 % (0-14.5)
[2025-05-11 14:23] VITALS: BP 134/62
[2025-05-11 14:31] LABS: BUN 26 mg/dl (9-23)
[2025-05-11] MEDS ORDERED: ASPIRIN, CHEWABLE 81 MG TAB PO ONE (14:45)
[2025-05-11] MEDS ORDERED: HEPARIN SODIUM 250 ML IV SCH (14:45)
[2025-05-11 19:58] VITALS: BP 122/77
[2025-05-11] MEDS ORDERED: CLOPIDOGREL75 MG PO (21:06)
[2025-05-11] MEDS ORDERED: METOPROLOL SUCC25 M2 PO (21:06)
[2025-05-11] MEDS ORDERED: ATORVASTATIN CA80 M1 PO (21:06)
[2025-05-11] MEDS ORDERED: LISINOPRIL20 MG PO (21:07)
[2025-05-11 22:20] VITALS: BP 107/54
[2025-05-12] VITALS (7 sets, daily range): BP systolic 92–119; BP diastolic 52–73
[2025-05-12] MEDS ORDERED: LORazepam 1 MG TAB PO ONE (00:20)
[2025-05-12] MEDS ORDERED: SODIUM CHLORIDE 0.9% 1,000 ML IV ONE (03:45)
[2025-05-12 06:31] LABS: BASO # 0.0 10*3/uL (0.0-0.1); BASO % 0.1 % (0.0-1.0); EOS # 0.3 10*3/uL (0.0-0.4); EOS % 3.4 % (1.0-4.0); MEAN CELL VOLUME 98.0 fl (81.0-99.0); MEAN CORPUSCULAR HGB 30.4 pg (27.0-31.0); MEAN PLATELET VOLUME 11.2 fl (9.6-12.3); MONO # 0.5 10*3/uL (0.1-1.0); MONO % 6.3 % (3.0-9.0); NEUT # 5.9 10*3/uL (2.3-7.9); NEUT % 71.3 % (47.0-73.0); NUCLEATED RED BLOOD CELL 0.0 % (0.0-0.0); NUCLEATED RED BLOOD CELL 0.0 10*3/uL (0.0-0.0); PLATELET COUNT AUTOMATED 142 10*3/uL (130-400); RED CELL DISTRI WIDTH 12.9 % (0-14.5)
[2025-05-12] MEDS ORDERED: Acetaminophen/Hydrocodone 5 MG/325 MG TABLET PO PRN (09:25)
[2025-05-12] MEDS ORDERED: BISACODYL 5 MG TAB PO PRN (09:25)
[2025-05-12] MEDS ORDERED: TEMAZEPAM 15 MG CAP PO PRN (09:25)
[2025-05-12] MEDS ORDERED: BISACODYL 10 MG SUPP R PRN (09:25)
[2025-05-12] MEDS ORDERED: Ondansetron Hydrochloride 4 MG/2 ML VIAL IV PRN (09:25)
[2025-05-12] MEDS ORDERED: ACETAMINOPHEN 325 MG TAB PO PRN (09:25)
[2025-05-12] MEDS ORDERED: TOPIRAMATE 25 MG TAB PO SCH (10:00)
[2025-05-12] MEDS ORDERED: Clopidogrel Hydrogen Sulfate 75 MG TAB PO SCH (10:00)
[2025-05-12] MEDS ORDERED: METOPROLOL SUCCINATE XR 25 MG TAB PO SCH (10:00)
[2025-05-12] MEDS ORDERED: LISINOPRIL 20 MG TAB PO SCH (10:00)
[2025-05-12] MEDS ORDERED: ATORVASTATIN CALCIUM 80 MG TAB PO SCH (22:00)
[2025-05-13] MEDS ORDERED: ASPIRIN ENTERIC COATED 81 MG TAB PO SCH (10:00)
== END 2025-05-12 20:37 | disposition short-term general hospital (02) ==
LOC: ED 13:35 → EDHOLD 05-12 07:40
PROVIDERS: Emergency Medicine; ADMIT Internal Medicine; ATTEND Internal Medicine
DX: I21.4 Non-ST elevation (NSTEMI) myocardial infarction (principal); I10 Essential (primary) hypertension; F41.9 Anxiety disorder, unspecified; R06.00 Dyspnea, unspecified; R11.0 Nausea; R10.9 Unspecified abdominal pain; E87.8 Other disorders of electrolyte and fluid balance, not elsewhere classified; F20.0 Paranoid schizophrenia; K57.92 Diverticulitis of intestine, part unspecified, without perforation or abscess without bleeding; Z90.49 Acquired absence of other specified parts of digestive tract; Z79.899 Other long term (current) drug therapy

== ENCOUNTER → 2025-05-17 | Outpatient (CLI) | payer OTHER ==
[~2025-05-17] MED LIST changes: +ATORVASTATIN CA80 M1 PO; +CLOPIDOGREL75 MG PO; +LISINOPRIL20 MG PO; +METOPROLOL SUCC25 M2 PO
== END | disposition home or self-care (01) ==
LOC: RESCLI 01:10
PROVIDERS: ATTEND Internal Medicine
DX: R07.89 Other chest pain (principal); M79.601 Pain in right arm; Z79.82 Long term (current) use of aspirin; Z79.899 Other long term (current) drug therapy; Z98.890 Other specified postprocedural states; Z88.8 Allergy status to other drugs, medicaments and biological substances

== ENCOUNTER → 2025-06-01 | Outpatient (CLI) | payer OTHER | LOC: LAB 11:16 | PROVIDERS: ATTEND Psychiatry & Neurology Neurology | DX: Z72.89 Other problems related to lifestyle (principal) ==

== ENCOUNTER 2025-06-08 16:07 | Emergency (ER) | payer OTHER ==
[~2025-06-08] VITALS: Ht 170.1 cm; Wt 77.1 kg
[2025-06-08 16:18] VITALS: BP 143/84
[2025-06-08] MEDS ORDERED: SODIUM CHLORIDE 0.9% 1,000 ML IV ONE (16:35)
[2025-06-08] MEDS ORDERED: Ondansetron Hydrochloride 4 MG/2 ML VIAL IV ONE (16:40)
[2025-06-08] MEDS ORDERED: IOHEXOL 300 MG/ML 100 ML VIAL IV ONE (16:45)
[2025-06-08 17:17] LABS: BILIRUBIN Negative (Negative); BLOOD Trace-Intact (Negative); CLARITY Clear (Clear); COLOR Yellow (Yellow); KETONE Negative (Negative); LEUKO ESTERASE 1+ (Negative); NITRITE Negative (Negative); PH 5.5 (4.5-8.0); SPECIFIC GRAVITY 1.020 (1.001-1.030); UROBILINOGEN 1.0 E.U./dl (0.0-1.0)
[2025-06-08 17:21] LABS: BASO # 0.0 10*3/uL (0.0-0.1); BASO % 0.3 % (0.0-1.0); EOS # 0.2 10*3/uL (0.0-0.4); EOS % 3.4 % (1.0-4.0); MEAN CELL VOLUME 97.5 fl (81.0-99.0); MEAN CORPUSCULAR HGB 30.9 pg (27.0-31.0); MEAN PLATELET VOLUME 10.9 fl (9.6-12.3); MONO # 0.5 10*3/uL (0.1-1.0); MONO % 6.4 % (3.0-9.0); NEUT # 4.6 10*3/uL (2.3-7.9); NEUT % 66.1 % (47.0-73.0); NUCLEATED RED BLOOD CELL 0.0 % (0.0-0.0); NUCLEATED RED BLOOD CELL 0.0 10*3/uL (0.0-0.0); PLATELET COUNT AUTOMATED 134 10*3/uL (130-400); RED CELL DISTRI WIDTH 13.2 % (0-14.5)
[2025-06-08] MEDS ORDERED: AMITRIPTYLINE25 MG PO (17:33)
[2025-06-08] MEDS ORDERED: LINZESS290 MC1 PO (17:33)
[2025-06-08] MEDS ORDERED: CYCLOBENZAPRINE5 M3 PO (17:33)
[2025-06-08 17:34] LABS: BACTERIA 1+
[2025-06-08 17:43] LABS: BUN 14 mg/dl (9-23)
[2025-06-08] MEDS ORDERED: Amoxicillin/Clavulanate Pota 875 MG TAB PO ONE (18:50)
[2025-06-08] MEDS ORDERED: metroNIDAZOLE 500 MG TAB PO ONE (18:55)
[2025-06-08] MEDS ORDERED: Ciprofloxacin Hydrochloride 500 MG TAB PO ONE (18:55)
[2025-06-08] MEDS ORDERED: METRONIDAZOLE500 M1 PO (18:56)
[2025-06-08] MEDS ORDERED: CIPRO500 MG PO (18:56)
[2025-06-09] MEDS ORDERED: ASPIRIN ADULT L81 M1 PO (14:36)
[2025-06-10] MEDS ORDERED: Ondansetron4 MG PO (09:49)
== END 2025-06-08 19:05 | disposition home or self-care (01) ==
LOC: ED 16:07
PROVIDERS: Nurse Practitioner Family
DX: K57.92 Diverticulitis of intestine, part unspecified, without perforation or abscess without bleeding (principal); K59.00 Constipation, unspecified; R10.32 Left lower quadrant pain; R11.2 Nausea with vomiting, unspecified; I10 Essential (primary) hypertension; F20.0 Paranoid schizophrenia; F31.9 Bipolar disorder, unspecified; F41.9 Anxiety disorder, unspecified; Z98.890 Other specified postprocedural states; Z90.49 Acquired absence of other specified parts of digestive tract; Z86.19 Personal history of other infectious and parasitic diseases

== ENCOUNTER → 2025-06-22 | Outpatient (CLI) | payer OTHER ==
[~2025-06-22] MED LIST changes: +AMITRIPTYLINE25 MG PO; +ASPIRIN ADULT L81 M1 PO; +CYCLOBENZAPRINE5 M3 PO; +LINZESS290 MC1 PO; +METRONIDAZOLE500 M1 PO; +Ondansetron4 MG PO
== END | disposition home or self-care (01) ==
LOC: RESCLI 02:55 → LAB 04:27 → RESCLI 04:27
PROVIDERS: ATTEND Internal Medicine
DX: G25.81 Restless legs syndrome (principal); K21.9 Gastro-esophageal reflux disease without esophagitis; I10 Essential (primary) hypertension; G43.909 Migraine, unspecified, not intractable, without status migrainosus; K57.92 Diverticulitis of intestine, part unspecified, without perforation or abscess without bleeding; E55.9 Vitamin D deficiency, unspecified; Z41.8 Encounter for other procedures for purposes other than remedying health state; Z79.899 Other long term (current) drug therapy; Z88.8 Allergy status to other drugs, medicaments and biological substances; Z79.82 Long term (current) use of aspirin; Z98.890 Other specified postprocedural states

== ENCOUNTER → 2025-06-27 | Outpatient (CLI) | payer OTHER | END | disposition home or self-care (01) | LOC: MAMMO 01:40 | PROVIDERS: ATTEND Internal Medicine | DX: Z12.31 Encounter for screening mammogram for malignant neoplasm of breast (principal); Z41.8 Encounter for other procedures for purposes other than remedying health state ==

== ENCOUNTER → 2025-07-07 | Outpatient (CLI) | payer OTHER ==
[2025-07-07 10:34] LABS: BASO # 0.0 10*3/uL (0.0-0.1); BASO % 0.4 % (0.0-1.0); EOS # 0.3 10*3/uL (0.0-0.4); EOS % 4.1 % (1.0-4.0); MEAN CELL VOLUME 96.5 fl (81.0-99.0); MEAN CORPUSCULAR HGB 30.5 pg (27.0-31.0); MEAN PLATELET VOLUME 11.0 fl (9.6-12.3); MONO # 0.6 10*3/uL (0.1-1.0); MONO % 8.7 % (3.0-9.0); NEUT # 4.5 10*3/uL (2.3-7.9); NEUT % 61.3 % (47.0-73.0); NUCLEATED RED BLOOD CELL 0.0 % (0.0-0.0); NUCLEATED RED BLOOD CELL 0.0 10*3/uL (0.0-0.0); PLATELET COUNT AUTOMATED 151 10*3/uL (130-400); RED CELL DISTRI WIDTH 12.9 % (0-14.5)
[2025-07-07 11:01] LABS: BUN 16 mg/dl (9-23)
== END | disposition home or self-care (01) ==
LOC: LAB 10:09
PROVIDERS: Student in an Organized Health Care Education/Training Program; ATTEND Internal Medicine
DX: A04.72 Enterocolitis due to Clostridium difficile, not specified as recurrent (principal)

== ENCOUNTER 2025-07-15 11:32 | Emergency (ER) | payer OTHER ==
[~2025-07-15] VITALS: Ht 170.1 cm; Wt 77.6 kg
[2025-07-15] MEDS ORDERED: NITROGLYCERIN 0.4 MG BOT SL ONE (11:35)
[2025-07-15] MEDS ORDERED: SODIUM CHLORIDE 0.9% 1,000 ML IV ONE (11:35)
[2025-07-15 11:45] VITALS: BP 119/71
[2025-07-15 11:48] LABS: BASO # 0.0 10*3/uL (0.0-0.1); BASO % 0.3 % (0.0-1.0); EOS # 0.2 10*3/uL (0.0-0.4); EOS % 1.8 % (1.0-4.0); MEAN CELL VOLUME 97.7 fl (81.0-99.0); MEAN CORPUSCULAR HGB 31.4 pg (27.0-31.0); MEAN PLATELET VOLUME 10.3 fl (9.6-12.3); MONO # 0.9 10*3/uL (0.1-1.0); MONO % 7.4 % (3.0-9.0); NEUT # 8.2 10*3/uL (2.3-7.9); NEUT % 71.8 % (47.0-73.0); NUCLEATED RED BLOOD CELL 0.0 % (0.0-0.0); NUCLEATED RED BLOOD CELL 0.0 10*3/uL (0.0-0.0); PLATELET COUNT AUTOMATED 171 10*3/uL (130-400); RED CELL DISTRI WIDTH 12.9 % (0-14.5)
[2025-07-15 12:07] LABS: BUN 22.0 mg/dl (9-23)
== END 2025-07-15 15:09 | disposition home or self-care (01) ==
LOC: ED 11:32
PROVIDERS: Emergency Medicine
DX: R07.89 Other chest pain (principal); I10 Essential (primary) hypertension; F31.9 Bipolar disorder, unspecified; F41.9 Anxiety disorder, unspecified; F20.0 Paranoid schizophrenia; Z98.890 Other specified postprocedural states; Z90.49 Acquired absence of other specified parts of digestive tract; Z86.19 Personal history of other infectious and parasitic diseases

== ENCOUNTER 2025-09-10 19:45 | Emergency (ER) | payer OTHER ==
[~2025-09-10] VITALS: Ht 167.6 cm; Wt 73.9 kg
[~2025-09-10 19:45] MED LIST changes: +AMITRIPTYLINE50 MG PO; +INDOMETHACIN25 M1 PO; +PROBIOTIC250 MG PO; +TOPIRAMATE100 M2 PO
[2025-09-10 19:48] VITALS: BP 126/78
[2025-09-10] MEDS ORDERED: Oxymetazoline Hydrochloride Nasal 15 ml bottle NAS ONE (19:55)
== END 2025-09-10 22:00 | disposition home or self-care (01) ==
LOC: ED 19:45
DX: R04.0 Epistaxis (principal); I10 Essential (primary) hypertension; F20.0 Paranoid schizophrenia; F41.9 Anxiety disorder, unspecified; F31.9 Bipolar disorder, unspecified; Z87.440 Personal history of urinary (tract) infections; Z98.890 Other specified postprocedural states; Z90.49 Acquired absence of other specified parts of digestive tract; Z86.19 Personal history of other infectious and parasitic diseases